=== PATIENT | male | born 1975 | race Caucasian/White ===

== ENCOUNTER 2020-12-14 19:29 | Inpatient (IN) | payer MEDICAID, OTHER ==
[~2020-12-14] VITALS: Ht 165.1 cm; Wt 46.3 kg
[2020-12-15] VITALS (13 sets, daily range): BP systolic 142–187; BP diastolic 70–115; O2SAT 89–97
[2020-12-15] MEDS ORDERED: NS 1,000 ML IV SCH ×2 (01:20→06:50)
[2020-12-15 01:31] LABS: BASO # 0.1 10^3/uL (0.0-0.2); BASO % 0.4 % (0.0-1.0); EOS % 0.1 % (0.0-3.0); HEMATOCRIT 49.4 % (42.0-52.0); HEMOGLOBIN 16.6 g/dl (13.5-17.5); LYMPH # 2.7 10^3/uL (1.5-5.0); LYMPH % 10.5 % (24.0-44.0); MEAN CORPUSCULAR HEMOGLOBIN 30.5 pg (27.0-33.0); MEAN CORPUSCULAR HGB CONC 33.6 g/dl (32.0-36.5); MEAN CORPUSCULAR VOLUME 90.8 fl (80.0-96.0); MONO # 3.2 10^3/uL (0.0-0.8); MONO % 12.2 % (2.0-8.0); NEUTROPHILS # 19.2 10^3/uL (1.5-8.5); NEUTROPHILS % 73.5 % (36.0-66.0); PLATELET COUNT, AUTOMATED 536 10^3/uL (150-450); RED BLOOD COUNT 5.44 10^6/uL (4.30-6.10)
[2020-12-15 01:33] LABS: WHITE BLOOD COUNT 26.1 10^3/uL (4.0-10.0)
[2020-12-15] MEDS ORDERED: LORazepam 2 MG/ML VIAL IV STA (01:38)
[2020-12-15] MEDS ORDERED: LABETALOL 100MG/20ML VIAL IV STA (01:38)
[2020-12-15] MEDS ORDERED: LABETALOL 100MG/20ML VIAL As Ordered ONE (01:40)
[2020-12-15] MEDS ORDERED: CARI1TAB7 PO (02:08)
[2020-12-15] MEDS ORDERED: [UNRECOGNIZED DRUG - REMARK] (02:08)
[2020-12-15] MEDS ORDERED: HYDR2TAB2 PO (02:08)
[2020-12-15] MEDS ORDERED: DIAZ5TAB PO (02:08)
[2020-12-15] MEDS ORDERED: MORP-69 PO (02:08)
[2020-12-15] MEDS ORDERED: MORP1TAB21 PO (02:08)
[2020-12-15] MEDS ORDERED: OMEP-221 PO (02:08)
[2020-12-15] MEDS ORDERED: HOME MED LIST COMPLETE! XX SCH (02:10)
[2020-12-15 02:19] LABS: ALBUMIN 5.3 GM/DL (3.2-5.2); ALT/SGPT 33 U/L (12-78); BILIRUBIN,DIRECT 0.2 MG/DL (0.0-0.2); BILIRUBIN,TOTAL 0.9 MG/DL (0.2-1.0); BLOOD UREA NITROGEN 16 MG/DL (7-18); CALCIUM LEVEL 9.8 MG/DL (8.5-10.1); CARBON DIOXIDE LEVEL 12 MEQ/L (21-32); CHLORIDE LEVEL 94 MEQ/L (98-107); CK-MB VALUE MASS 6.6 NG/ML (<3.6); CPK CREATINE PHOSPHOKINASE 298 U/L (39-308); CREATININE FOR GFR 1.48 MG/DL (0.70-1.30); ETHYL ALCOHOL (ETHANOL) < 0.003 % (0.000-0.010); GLOMERULAR FILTRATION RATE 54.7 (>60); GLUCOSE, FASTING 221 MG/DL (70-100); MB/CK RELATIVE INDEX 2.21 (< OR =4); POTASSIUM SERUM 3.2 MEQ/L (3.5-5.1); SALICYLATE LEVEL 7.1 MG/DL (5.0-30.0); SODIUM LEVEL 132 MEQ/L (136-145); THYROID STIMULATING HORMONE 0.712 uIU/ML (0.358-3.740); TOTAL PROTEIN 9.4 GM/DL (6.4-8.2); TROPONIN I < 0.02 NG/ML (< 0.10)
[2020-12-15 02:20] LABS: ACETAMINOPHEN LEVEL < 2.0 UG/ML (10.0-30.0)
[2020-12-15 02:20] LABS: AMPHETAMINES LEVEL URINE NEGATIVE (NEGATIVE); BARBITURATES URINE NEGATIVE (NEGATIVE); BENZODIAZEPINES URINE POSITIVE (NEGATIVE); CANNABINOIDS URINE NEGATIVE (NEGATIVE); COCAINE METABOLITE URINE NEGATIVE (NEGATIVE); METHADONE URINE NEGATIVE (NEGATIVE); OPIATES URINE POSITIVE (NEGATIVE); PHENCYCLIDINE URINE NEGATIVE (NEGATIVE)
[2020-12-15 03:48] LABS: RSV AMPLIFICATION NEGATIVE (NEGATIVE)
[2020-12-15] MEDS ORDERED: POTASSIUM CHLORIDE 10% LIQ 20 MEQ/15 ML UDC PO ONE (04:00)
[2020-12-15 04:01] LABS: ABG BASE EXCESS -0.4 (-2.0-2.0); ABG O2 SATURATION 95.6 % (95.0-99.0); ABG PARTIAL PRESSURE CO2 30.3 mmHg (35.0-45.0); ABG PARTIAL PRESSURE O2 77.9 mmHg (75.0-100.0); ABG STANDARD HCO3 24.1 MEQ/L (22.0-26.0); ABG TOTAL CO2 22.9 MEQ/L (22.0-29.0); ABG pH (ARTERIAL) 7.478 UNITS (7.350-7.450)
[2020-12-15 04:02] LABS: ACETONE/KETONE 3.94 MG/DL (<2.81)
[2020-12-15] MEDS ORDERED: DEXTROSE 50% 50 ML SYRINGE IV PRN (04:45)
[2020-12-15] MEDS ORDERED: GLUCAGON INJ 1MG VIAL SC PRN (04:45)
[2020-12-15] MEDS ORDERED: LORazepam 2 MG TAB PO PRN (04:45)
[2020-12-15] MEDS ORDERED: GLUCOSE 4GM CHEW TABLET PO PRN (04:45)
[2020-12-15] MEDS ORDERED: LORazepam 2 MG/ML VIAL IV PRN (04:45)
[2020-12-15] MEDS ORDERED: LEVALBUTEROL 1.25 MG/0.5 ML CONCENTRATE NEB INH PRN (05:20)
[2020-12-15] MEDS ORDERED: MORPHINE 2 MG/ML 1ML VIAL (J2270) IV PRN (05:50)
[2020-12-15] MEDS: HumaLOG INSULIN (NovoLOG) PER UNIT SC SCH ×4 (06:00→18:00)
[2020-12-15] MEDS ORDERED: MULTIVITAMIN -ADULT INJECTION 10 ML, THIAMINE INJection 100 MG, FOLIC ACID 1 MG in NS 1... IV ONE (06:00)
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
[2020-12-15] MEDS ORDERED: LIDOCAINE 5% (LIDODERM) PATCH TD PRN (06:30)
[2020-12-15] MEDS: LORazepam 1 MG TAB PO SCH ×3 (06:57→18:54)
--- NOTE | 2020-12-15 08:12 | REP ---
INDICATION: Altered Mental Status COMPARISON: None. TECHNIQUE: Portable AP view of the chest FINDINGS: The mediastinum and cardiac silhouette are within normal limits for portable technique. The lung thompson are clear without acute consolidation, effusion, or pneumothorax. Skeletal structures are intact. IMPRESSION: No acute cardiopulmonary process appreciated. <Electronically signed by Paco Guerrero > 12/15/20 [id number]
[2020-12-15] MEDS: ACETAMINOPHEN TAB 650MG DOSE (2X325MG) PO PRN (08:48)
[2020-12-15 09:10] LABS: BASO # 0.1 10^3/uL (0.0-0.2); BASO % 0.2 % (0.0-1.0); HEMATOCRIT 42.4 % (42.0-52.0); HEMOGLOBIN 15.1 g/dl (13.5-17.5); LYMPH # 0.9 10^3/uL (1.5-5.0); LYMPH % 4.1 % (24.0-44.0); MEAN CORPUSCULAR HEMOGLOBIN 30.3 pg (27.0-33.0); MEAN CORPUSCULAR HGB CONC 35.6 g/dl (32.0-36.5); MEAN CORPUSCULAR VOLUME 85.1 fl (80.0-96.0); MONO # 3.3 10^3/uL (0.0-0.8); MONO % 15.5 % (2.0-8.0); NEUTROPHILS # 16.7 10^3/uL (1.5-8.5); NEUTROPHILS % 79.2 % (36.0-66.0); RED BLOOD COUNT 4.98 10^6/uL (4.30-6.10)
[2020-12-15] MEDS: OMEPRAZOLE 20 MG CAP PO SCH (09:12)
[2020-12-15 09:31] LABS: WHITE BLOOD COUNT 21.2 10^3/uL (4.0-10.0)
[2020-12-15 09:32] LABS: BLOOD UREA NITROGEN 15 MG/DL (7-18); CALCIUM LEVEL 8.9 MG/DL (8.5-10.1); CARBON DIOXIDE LEVEL 23 MEQ/L (21-32); CHLORIDE LEVEL 103 MEQ/L (98-107); CREATININE FOR GFR 0.84 MG/DL (0.70-1.30); GLOMERULAR FILTRATION RATE > 60.0 (>60); GLUCOSE, FASTING 99 MG/DL (70-100); MAGNESIUM LEVEL 2.7 MG/DL (1.8-2.4); POTASSIUM SERUM 4.1 MEQ/L (3.5-5.1); SODIUM LEVEL 134 MEQ/L (136-145)
[2020-12-15 09:34] LABS: PLATELET COUNT, AUTOMATED 433 10^3/uL (150-450)
[2020-12-15 10:23] LABS: HEMOGLOBIN A1c 5.3 %
[2020-12-15] MEDS: MORPHINE 15 MG SA TAB PO SCH ×2 (12:28→21:00)
[2020-12-15] MEDS: MORPHINE 30 MG SA TAB PO SCH ×2 (12:29→21:00)
[2020-12-15] MEDS: diazePAM 5MG TABLET PO PRN (13:00)
[2020-12-15] MEDS: HYDROmorphone 2 MG TAB PO PRN ×2 (13:02→23:36)
[2020-12-15 13:50] LABS: BASO # 0.1 10^3/uL (0.0-0.2); BASO % 0.3 % (0.0-1.0); EOS % 0.1 % (0.0-3.0); HEMATOCRIT 39.2 % (42.0-52.0); HEMOGLOBIN 13.8 g/dl (13.5-17.5); LYMPH # 0.7 10^3/uL (1.5-5.0); LYMPH % 4.4 % (24.0-44.0); MEAN CORPUSCULAR HEMOGLOBIN 30.5 pg (27.0-33.0); MEAN CORPUSCULAR HGB CONC 35.2 g/dl (32.0-36.5); MEAN CORPUSCULAR VOLUME 86.7 fl (80.0-96.0); MONO # 2.6 10^3/uL (0.0-0.8); MONO % 15.6 % (2.0-8.0); NEUTROPHILS # 13.2 10^3/uL (1.5-8.5); NEUTROPHILS % 78.4 % (36.0-66.0); PLATELET COUNT, AUTOMATED 388 10^3/uL (150-450); RED BLOOD COUNT 4.52 10^6/uL (4.30-6.10)
[2020-12-15] MEDS: NICOTINE 14 MG/24 HR TRANSDERMAL TD SCH (14:11)
[2020-12-15] MEDS: METOPROLOL SUCC *XL* 25MG TAB (TopROL *XL*) PO SCH (14:11)
[2020-12-15 14:22] LABS: ALT/SGPT 29 U/L (12-78); BILIRUBIN,TOTAL 1.1 MG/DL (0.2-1.0); BLOOD UREA NITROGEN 15 MG/DL (7-18); CALCIUM LEVEL 8.6 MG/DL (8.5-10.1); CARBON DIOXIDE LEVEL 24 MEQ/L (21-32); CHLORIDE LEVEL 104 MEQ/L (98-107); CREATININE FOR GFR 0.89 MG/DL (0.70-1.30); GLOMERULAR FILTRATION RATE > 60.0 (>60); GLUCOSE, FASTING 114 MG/DL (70-100); POTASSIUM SERUM 3.5 MEQ/L (3.5-5.1); SODIUM LEVEL 138 MEQ/L (136-145); TOTAL PROTEIN 6.9 GM/DL (6.4-8.2)
[2020-12-15 14:25] LABS: WHITE BLOOD COUNT 16.9 10^3/uL (4.0-10.0)
[2020-12-15] MEDS: NS 1,000 ML IV SCH ×2 (15:47→22:33)
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
--- NOTE | 2020-12-15 17:30 | REPVR ---
PROCEDURE INFORMATION: Exam: MR Head Without Contrast Exam date and time: 12/15/2020 4:45 PM Age: 44 years old Clinical indication: Other: CT findings; Additional info: Seizure, CT findings TECHNIQUE: Imaging protocol: MR of the head without contrast. COMPARISON: CT Head without contrast 12/15/2020 2:02 AM FINDINGS: Brain: Normal brain. No acute infarct or intracerebral bleed. The deep white matter in both cerebral hemispheres is normal. No abnormality identified in the left superior parietal lobe to explain the subtle subcortical hypodensity seen on the prior head CT exam. This may be a CT artifact. The position, size and shape of the cerebellar tonsils are normal. The pituitary and sella turcica appear normal. The vestibulocochlear complexes bilaterally are normal. Normal base of skull vasculature flow voids. The mesial temporal lobes and hippocampal regions are normal. Cerebral ventricles: Normal. No ventriculomegaly. Bones/joints: Normal. Paranasal sinuses: Moderate mucosal thickening is present in the inferior left maxillary sinus. No acute sinusitis. Mastoid air cells: Normal as visualized. No mastoid effusion. Orbital cavity: Unremarkable. Soft tissues: Unremarkable. IMPRESSION: 1. Normal brain. No acute infarct or intracerebral bleed. 2. The deep white matter in both cerebral hemispheres is normal. No abnormality identified in the left superior parietal lobe to explain the subtle subcortical hypodensity seen on the prior head CT exam from 12/15/2020. This may be a CT artifact. 3. Moderate mucosal thickening is present in the inferior left maxillary sinus. Electronically signed by: Guzman Lira On 12/15/2020 17:29:55 PM
--- NOTE | 2020-12-15 20:14 | ECGEPIP ---
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
[2020-12-15] MEDS: **NOTE PATIENT COMMENT** MISC XX SCH (21:00)
[2020-12-15] MEDS ORDERED: LABETALOL 100MG/20ML VIAL IV PRN (21:10)
[2020-12-16] VITALS (17 sets, daily range): BP systolic 141–178; BP diastolic 86–101; O2SAT 89–98
[2020-12-16] MEDS: LORazepam 1 MG TAB PO SCH
[2020-12-16] MEDS: carisoprodoL 350 MG TAB PO PRN ×3 (02:28→22:10)
[2020-12-16] MEDS: NS 1,000 ML IV SCH (04:41)
[2020-12-16 06:04] LABS: BASO # 0.1 10^3/uL (0.0-0.2); BASO % 0.4 % (0.0-1.0); EOS % 0.1 % (0.0-3.0); HEMATOCRIT 35.3 % (42.0-52.0); HEMOGLOBIN 12.2 g/dl (13.5-17.5); LYMPH # 1.2 10^3/uL (1.5-5.0); LYMPH % 9.8 % (24.0-44.0); MEAN CORPUSCULAR HEMOGLOBIN 30.6 pg (27.0-33.0); MEAN CORPUSCULAR HGB CONC 34.6 g/dl (32.0-36.5); MEAN CORPUSCULAR VOLUME 88.5 fl (80.0-96.0); MONO # 1.8 10^3/uL (0.0-0.8); MONO % 14.8 % (2.0-8.0); NEUTROPHILS # 8.9 10^3/uL (1.5-8.5); NEUTROPHILS % 73.8 % (36.0-66.0); RED BLOOD COUNT 3.99 10^6/uL (4.30-6.10)
[2020-12-16] MEDS: HYDROmorphone 2 MG TAB PO PRN ×2 (06:08→17:44)
[2020-12-16 06:23] LABS: BLOOD UREA NITROGEN 14 MG/DL (7-18); CALCIUM LEVEL 7.9 MG/DL (8.5-10.1); CARBON DIOXIDE LEVEL 23 MEQ/L (21-32); CHLORIDE LEVEL 108 MEQ/L (98-107); CREATININE FOR GFR 0.72 MG/DL (0.70-1.30); GLOMERULAR FILTRATION RATE > 60.0 (>60); GLUCOSE, FASTING 103 MG/DL (70-100); MAGNESIUM LEVEL 2.1 MG/DL (1.8-2.4); POTASSIUM SERUM 3.6 MEQ/L (3.5-5.1); SODIUM LEVEL 139 MEQ/L (136-145)
[2020-12-16 06:56] LABS: PLATELET COUNT, AUTOMATED 286 10^3/uL (150-450)
[2020-12-16] MEDS: IPRATROPIUM 0.5MG/ALBUTEROL 2.5MG INH SOL UD 3ML (DUONEB) NEB SCH ×3 (08:00→19:51)
[2020-12-16] MEDS: MULTIVITAMINS/MINERALS THERAP 1 TAB PO SCH (08:49)
[2020-12-16] MEDS: OMEPRAZOLE 20 MG CAP PO SCH (08:49)
[2020-12-16] MEDS: MORPHINE 15 MG SA TAB PO SCH ×2 (08:49→20:24)
[2020-12-16] MEDS: THIAMINE 100 MG TAB PO SCH (08:49)
[2020-12-16] MEDS: FOLIC ACID 1 MG TAB PO SCH (08:49)
[2020-12-16] MEDS: **NOTE PATIENT COMMENT** MISC XX SCH ×2 (08:50→21:00)
[2020-12-16] MEDS: NICOTINE 14 MG/24 HR TRANSDERMAL TD SCH (08:50)
[2020-12-16] MEDS: METOPROLOL SUCC *XL* 25MG TAB (TopROL *XL*) PO SCH (08:50)
--- NOTE | 2020-12-16 09:10 | IPN ---
PROGRESS NOTE DATE: 12/16/2020 SUBJECTIVE: Eben is seen in the PCU admitted with new seizures. He fell and hit his head. He has a history of opiate and benzodiazepine use, suspected there was some withdrawal leading to this. MRI of the brain showed no significant abnormalities. Previous finding on CT appears to be an artifact. EEG is pending. He has some pain in his left rib cage from his fall. We are going to do some further imaging on that. He had a fever yesterday midday that has not recurred. His blood pressure is remaining under good control. He would like a nicotine patch for his smoking withdrawal. OBJECTIVE: VITAL SIGNS: Afebrile. Temperature is currently 100.1, T-max 101. BP was 146/90. GENERAL APPEARANCE: Alert and conversant, in no distress, looks mildly anxious. LUNGS: Clear. CHEST: Left chest wall tender to palpate. No crepitants. HEART: Regular rate and rhythm. ABDOMEN: Soft and nontender. EXTREMITIES: No peripheral edema. Moves arms and legs with equal strength. LABORATORY DATA: White count 12, hemoglobin 12.2, platelets 286,000. Sodium 139, potassium 3.6, BUN 14, creatinine 0.7, glucose 103. Tox screen was positive for opiates and benzodiazepines. ASSESSMENT/PLAN: 1. Possible seizure. Suspect this is related to withdrawal of alcohol, opiates, and benzodiazepines. EEG is pending. I agree with starting anticonvulsants pending results of the EEG. 2. Hypertension. Blood pressure is up. Some of this is withdrawal and anxiety. He also has some pain in his left rib cage. I have augmented his antihypertensives adding amlodipine 5 mg daily. 3. Left rib cage. Still quite tender in that area. Given he is running a fever, I am getting a CT without contrast today. 4. Tobacco abuse. No interval complaints patch has been ordered.
[2020-12-16] MEDS: amLODIPine 5 MG TAB PO SCH (09:28)
--- NOTE | 2020-12-16 09:32 | REP ---
INDICATION: left ribs COMPARISON: Portable chest x-ray dated 12/15/2020 TECHNIQUE: Axial noncontrast images from the thoracic inlet to the upper abdomen with coronal and sagittal reformations. This CT examination was performed using the following dose reduction techniques: Automated exposure control, adjustment of mA and/or kv according to the patient's size, and use of iterative reconstruction technique. FINDINGS: There is essentially complete consolidation/collapse to the bilateral lower lobes. No associated endobronchial abnormalities are identified. Remainder of the aerated lung thompson demonstrates mild emphysematous disease with scattered primarily biapical bullae/blebs measuring up to 2 cm. No effusion. No pneumothorax. Mediastinum is normal by noncontrast evaluation. Surrounding musculoskeletal structures are intact and normal. IMPRESSION: Essentially complete consolidative collapse to the bilateral lower lobes. Correlation and follow-up is required. <Electronically signed by Paco Guerrero > 12/16/20 0928
[2020-12-16] MEDS: MORPHINE 30 MG SA TAB PO SCH ×2 (09:50→20:23)
[2020-12-16] MEDS: LevoFLOXacin IV 750 MG in IV 1 EA IV SCH (12:07)
[2020-12-16] MEDS: diazePAM 5MG TABLET PO PRN (17:48)
[2020-12-16] MEDS: ACETAMINOPHEN TAB 650MG DOSE (2X325MG) PO PRN (20:23)
[2020-12-17] VITALS (11 sets, daily range): BP systolic 133–161; BP diastolic 79–93; O2SAT 90–99
[2020-12-17] MEDS: IPRATROPIUM 0.5MG/ALBUTEROL 2.5MG INH SOL UD 3ML (DUONEB) NEB SCH ×4 (01:10→20:12)
[2020-12-17 05:27] LABS: BASO # 0.1 10^3/uL (0.0-0.2); BASO % 0.6 % (0.0-1.0); EOS # 0.1 10^3/uL (0.0-0.5); EOS % 1.1 % (0.0-3.0); HEMATOCRIT 32.3 % (42.0-52.0); HEMOGLOBIN 11.1 g/dl (13.5-17.5); LYMPH # 1.3 10^3/uL (1.5-5.0); LYMPH % 14.8 % (24.0-44.0); MEAN CORPUSCULAR HEMOGLOBIN 30.4 pg (27.0-33.0); MEAN CORPUSCULAR HGB CONC 34.4 g/dl (32.0-36.5); MEAN CORPUSCULAR VOLUME 88.5 fl (80.0-96.0); MONO % 11.8 % (2.0-8.0); NEUTROPHILS # 6.1 10^3/uL (1.5-8.5); NEUTROPHILS % 71.1 % (36.0-66.0); PLATELET COUNT, AUTOMATED 234 10^3/uL (150-450); RED BLOOD COUNT 3.65 10^6/uL (4.30-6.10); WHITE BLOOD COUNT 8.6 10^3/uL (4.0-10.0)
[2020-12-17 05:54] LABS: BLOOD UREA NITROGEN 8 MG/DL (7-18); CALCIUM LEVEL 8.5 MG/DL (8.5-10.1); CARBON DIOXIDE LEVEL 27 MEQ/L (21-32); CHLORIDE LEVEL 103 MEQ/L (98-107); GLOMERULAR FILTRATION RATE > 60.0 (>60); GLUCOSE, FASTING 92 MG/DL (70-100); SODIUM LEVEL 135 MEQ/L (136-145)
[2020-12-17] MEDS: HYDROmorphone 2 MG TAB PO PRN ×2 (07:46→18:12)
--- NOTE | 2020-12-17 08:17 | REP ---
INDICATION: Altered Mental Status COMPARISON: None. TECHNIQUE: Axial noncontrast images from the skull base to the vertex with coronal reformations. This CT examination was performed using the following dose reduction techniques: Automated exposure control, adjustment of mA and/or kv according to the patient's size, and use of iterative reconstruction technique. FINDINGS: There is a small 9 mm hypodense focus in the left frontoparietal region (series 201; image 23) which is nonspecific and should be correlated clinically with symptoms. Ventricles are symmetric. Barnard-white differentiation is maintained. No acute intracranial hemorrhage or mass effect. No extra-axial fluid collection. Calvarium is intact. Paranasal sinuses and mastoid air cells are within normal limits. IMPRESSION: Subcentimeter low-density focus in the left frontoparietal region of uncertain clinical significance. Correlation with symptomatology is recommended and if necessary consider MRI for further investigation. Otherwise unremarkable noncontrast head CT. <Electronically signed by Paco Guerrero > 12/17/20 [id number]
[2020-12-17] MEDS: diazePAM 5MG TABLET PO PRN ×2 (08:38→15:21)
[2020-12-17] MEDS: **NOTE PATIENT COMMENT** MISC XX SCH ×2 (09:00→21:00)
[2020-12-17] MEDS: NICOTINE 14 MG/24 HR TRANSDERMAL TD SCH (09:46)
[2020-12-17] MEDS: POTASSIUM CHLORIDE 10 MEQ SR TABLET PO SCH ×2 (09:46→21:16)
[2020-12-17] MEDS: MULTIVITAMINS/MINERALS THERAP 1 TAB PO SCH (09:46)
[2020-12-17] MEDS: MORPHINE 30 MG SA TAB PO SCH ×3 (09:47→21:21)
[2020-12-17] MEDS: METOPROLOL SUCC *XL* 25MG TAB (TopROL *XL*) PO SCH (09:47)
[2020-12-17] MEDS: THIAMINE 100 MG TAB PO SCH (09:47)
[2020-12-17] MEDS: FOLIC ACID 1 MG TAB PO SCH (09:47)
[2020-12-17] MEDS: amLODIPine 5 MG TAB PO SCH (09:47)
[2020-12-17] MEDS: MORPHINE 15 MG SA TAB PO SCH ×2 (09:48→21:18)
[2020-12-17] MEDS: OMEPRAZOLE 20 MG CAP PO SCH (09:48)
--- NOTE | 2020-12-17 10:11 | IPN ---
PROGRESS NOTE DATE: 12/17/2020 SUBJECTIVE: Eben is seen in the PCU. He was admitted with a probable seizure, we do not have clear details of what happened with him but we suspect it was a drug withdrawal seizure. Adding credence to that is the fact that the first question he asks every time each instance I have come into the room to round on him is when he going to get his next dose of morphine. He was found to have bilateral pneumonia on CT scan of the chest yesterday. He had fallen and had some contused ribs. Clinical exam suggested possible infiltrate. CT scan showed bilateral pneumonia. He is on Levaquin for this (penicillin allergy). OBJECTIVE: VITAL SIGNS: Afebrile. Vital signs are stable. O2 saturation 98% on room air. GENERAL APPEARANCE: Alert, conversant, in no distress. LUNGS: Rales at both bases. HEART: Regular rhythm. ABDOMEN: Soft, nontender. EXTREMITIES: No peripheral edema. He moves arms and legs with equal strength. LABORATORY DATA: White count 8.6, hemoglobin 11.1, platelets are 234,000. Sodium is 135, potassium is 3. BUN 8, creatinine is 0.7, glucose is 92. Procalcitonin is pending. ASSESSMENT: 1. Suspected seizure probably from drug withdrawal. EEG is pending. He has had no seizures. Will take him off seizure precautions, unless the EEG shows something unexpected I do not think he needs anticonvulsant therapy. 2. Bilateral pneumonia probably related to chest wall injury. He is on Levaquin for this. Procalcitonin is pending. 3. Hyponatremia, change his diet. He is on a 2 gram sodium diet which he does not need. No reason to restrict sodium in this patient. Will put him on a regular diet. 4. Hypokalemia, supplemental potassium has been given. 5. Hypertension. Blood pressure is under better control. 6. Chronic pain issues. As noted above, he is quite focused on getting his morphine. He will probably be stable for discharge in the next two or day, probably tomorrow.
[2020-12-17] MEDS: LevoFLOXacin IV 750 MG in IV 1 EA IV SCH (11:55)
[2020-12-17] MEDS: carisoprodoL 350 MG TAB PO PRN ×2 (13:09→23:41)
[2020-12-18] MEDS: IPRATROPIUM 0.5MG/ALBUTEROL 2.5MG INH SOL UD 3ML (DUONEB) NEB SCH ×2 (01:26→07:14)
[2020-12-18 05:56] LABS: BASO # 0.1 10^3/uL (0.0-0.2); BASO % 0.8 % (0.0-1.0); EOS # 0.2 10^3/uL (0.0-0.5); EOS % 2.5 % (0.0-3.0); HEMATOCRIT 32.6 % (42.0-52.0); HEMOGLOBIN 11.1 g/dl (13.5-17.5); LYMPH # 1.3 10^3/uL (1.5-5.0); LYMPH % 16.9 % (24.0-44.0); MEAN CORPUSCULAR HEMOGLOBIN 30.2 pg (27.0-33.0); MEAN CORPUSCULAR VOLUME 88.8 fl (80.0-96.0); MONO # 1.1 10^3/uL (0.0-0.8); MONO % 13.3 % (2.0-8.0); NEUTROPHILS # 5.2 10^3/uL (1.5-8.5); NEUTROPHILS % 65.6 % (36.0-66.0); PLATELET COUNT, AUTOMATED 246 10^3/uL (150-450); RED BLOOD COUNT 3.67 10^6/uL (4.30-6.10); WHITE BLOOD COUNT 7.9 10^3/uL (4.0-10.0)
[2020-12-18 06:00] VITALS: BP 143/92
[2020-12-18 06:19] LABS: BLOOD UREA NITROGEN 9 MG/DL (7-18); CALCIUM LEVEL 8.1 MG/DL (8.5-10.1); CARBON DIOXIDE LEVEL 28 MEQ/L (21-32); CHLORIDE LEVEL 104 MEQ/L (98-107); CREATININE FOR GFR 0.68 MG/DL (0.70-1.30); GLOMERULAR FILTRATION RATE > 60.0 (>60); GLUCOSE, FASTING 93 MG/DL (70-100); POTASSIUM SERUM 3.4 MEQ/L (3.5-5.1); SODIUM LEVEL 135 MEQ/L (136-145)
[2020-12-18] MEDS ORDERED: LevoFLOXacin 750 MG TABLET PO SCH (08:45)
[2020-12-18] MEDS ORDERED: AMLO1TAB24 PO (08:48)
[2020-12-18] MEDS ORDERED: LEVO750T13 PO (08:48)
[2020-12-18] MEDS: **NOTE PATIENT COMMENT** MISC XX SCH (08:58)
[2020-12-18] MEDS: NICOTINE 14 MG/24 HR TRANSDERMAL TD SCH (08:58)
[2020-12-18] MEDS: POTASSIUM CHLORIDE 10 MEQ SR TABLET PO SCH (08:58)
[2020-12-18] MEDS: OMEPRAZOLE 20 MG CAP PO SCH (08:59)
[2020-12-18] MEDS: MULTIVITAMINS/MINERALS THERAP 1 TAB PO SCH (08:59)
[2020-12-18] MEDS: FOLIC ACID 1 MG TAB PO SCH (08:59)
[2020-12-18] MEDS: THIAMINE 100 MG TAB PO SCH (08:59)
[2020-12-18 09:00] VITALS: BP 146/82
[2020-12-18] MEDS: METOPROLOL SUCC *XL* 25MG TAB (TopROL *XL*) PO SCH (09:00)
[2020-12-18] MEDS: amLODIPine 5 MG TAB PO SCH (09:00)
[2020-12-18] MEDS: MORPHINE 15 MG SA TAB PO SCH (09:01)
[2020-12-18] MEDS: MORPHINE 30 MG SA TAB PO SCH (09:01)
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
== END 2020-12-18 12:11 | disposition home or self-care (01) | DRG 53 ==
LOC: M ED 19:29 → M ED INP 12-15 04:42 → ENRESERV 12-15 05:52 → M PCU 12-15 06:28 → M MSPAV 12-17 18:29
PROVIDERS: ADMIT Family Medicine; ATTEND Family Medicine
DX: G40.89 Other seizures (principal); J18.9 Pneumonia, unspecified organism; E87.1 Hypo-osmolality and hyponatremia; E87.6 Hypokalemia; I10 Essential (primary) hypertension; E78.5 Hyperlipidemia, unspecified; Z79.899 Other long term (current) drug therapy; Z88.0 Allergy status to penicillin; Z91.010 Allergy to peanuts; F17.210 Nicotine dependence, cigarettes, uncomplicated; K21.9 Gastro-esophageal reflux disease without esophagitis; E16.2 Hypoglycemia, unspecified; S22.32XA Fracture of one rib, left side, initial encounter for closed fracture; W18.30XA Fall on same level, unspecified, initial encounter; Y92.009 Unspecified place in unspecified non-institutional (private) residence as the place of occurrence of the external cause; F10.239 Alcohol dependence with withdrawal, unspecified; F11.23 Opioid dependence with withdrawal; F15.23 Other stimulant dependence with withdrawal